=== PATIENT | male | born 1965 | race Caucasian/White ===

== ENCOUNTER 2020-01-31 14:15 | Emergency (ER) | payer BC ==
[~2020-01-31] VITALS: Ht 177.8 cm; Wt 112.0 kg
[2020-01-31 14:15] VITALS: BP 173/83
[2020-01-31] MEDS ORDERED: IBUP-1022 PO (14:54)
== END 2020-01-31 15:02 | disposition home or self-care (01) ==
LOC: M ED 14:15
DX: S46.012A Strain of muscle(s) and tendon(s) of the rotator cuff of left shoulder, initial encounter (principal); X50.0XXA Overexertion from strenuous movement or load, initial encounter; Y99.0 Civilian activity done for income or pay; Y92.9 Unspecified place or not applicable; Y93.9 Activity, unspecified

== ENCOUNTER → 2020-02-18 | Outpatient (CLI) | payer BC ==
[~2020-02-18] MED LIST: IBUP-1022 PO
== END ==
LOC: M LABSMTC 13:11
PROVIDERS: ATTEND Anesthesiology
DX: Z01.812 Encounter for preprocedural laboratory examination (principal); Z20.828 Contact with and (suspected) exposure to other viral communicable diseases
CPT/HCPCS: C9803; U0003

== ENCOUNTER 2020-02-23 06:05 | Day surgery (SDC) | payer OTHER ==
[~2020-02-23] VITALS: Ht 177.8 cm; Wt 112.0 kg
[2020-02-23] MEDS ORDERED: dexameTHASONE 10MG/1ML VIAL PRES.FREE (J1100 PER 1MG) ONE (06:06)
[2020-02-23] MEDS ORDERED: LIDOCAINE 1% MDV 20ML VIAL ONE (06:06)
[2020-02-23] MEDS ORDERED: ROPIvacaine 0.5% 30ML INJECTION (J2795 PER 1MG) ONE (06:06)
[2020-02-23] MEDS ORDERED: ceFAZolin SOD 2 GM in IV 1 EA IV ONE (07:00)
[2020-02-23] MEDS ORDERED: LR 1,000 ML IV ONE (07:00)
[2020-02-23] MEDS ORDERED: dexameTHASONE 4 MG/ML 1ML VIAL (J1100 PER 1MG) As Ordered ONE (07:03)
[2020-02-23] MEDS ORDERED: fentaNYL 100 MCG/2 ML INJECTION (J3010) As Ordered ONE ×2 (07:03→07:04)
[2020-02-23] MEDS ORDERED: KETOROLAC 60MG 2ML VIAL As Ordered ONE (07:03)
[2020-02-23] MEDS ORDERED: MIDAZOLAM INJ 2MG/2ML VIAL (J2250 PER 1MG) As Ordered ONE ×2 (07:03→07:04)
[2020-02-23] MEDS ORDERED: ONDANSETRON 4MG/2ML VIAL As Ordered ONE (07:03)
[2020-02-23] MEDS ORDERED: LIDOCAINE 2% 100MG/5ML SDV (FOR ANES.) As Ordered ONE (07:04)
[2020-02-23] MEDS ORDERED: propofoL 200 MG/20 ML VIAL As Ordered ONE (07:04)
[2020-02-23] MEDS ORDERED: ROCURONIUM BROMIDE 50 MG/5 ML VIAL As Ordered ONE (07:05)
[2020-02-23] MEDS ORDERED: EPINEPHrine 1MG/ML INJ 30ML MD-VIAL As Ordered ONE (07:14)
[2020-02-23] MEDS ORDERED: SUGAMMADEX SODIUM 500 MG/5 ML VIAL (BRIDION) As Ordered ONE (08:10)
[2020-02-23] MEDS ORDERED: ACETAMINOPHEN 1000MG 100ML IV BTL (OFIRMEV) (J0131 PER 10MG) As Ordered ONE (08:10)
[2020-02-23] MEDS ORDERED: MIDAZOLAM INJ 2MG/2ML VIAL (J2250 PER 1MG) IV PRN (09:00)
[2020-02-23] MEDS ORDERED: fentaNYL 100 MCG/2 ML INJECTION (J3010) IV PRN ×2 (09:00→11:15)
[2020-02-23] MEDS ORDERED: LABETALOL 100MG/20ML VIAL As Ordered ONE (10:16)
[2020-02-23] MEDS: LABETALOL 100MG/20ML VIAL IV SCH ×5 (10:19→11:15)
[2020-02-23 11:15] VITALS: BP 179/89
[2020-02-23] MEDS ORDERED: ONDANSETRON 4MG/2ML VIAL IV PRN ×2 (11:15→11:30)
[2020-02-23] MEDS ORDERED: LR 1,000 ML IV SCH (11:15)
[2020-02-23] MEDS ORDERED: oxyCODONE 5MG TAB PO PRN (11:15)
[2020-02-23] MEDS ORDERED: ACETAMINOPHEN TAB 650MG DOSE (2X325MG) PO PRN (11:30)
[2020-02-23] MEDS ORDERED: MORPHINE 2 MG/ML 1ML VIAL (J2270) IV PRN (11:30)
[2020-02-23] MEDS ORDERED: PERCOCET 5MG/325MG TAB PO PRN (11:30)
--- NOTE | 2020-02-23 14:13 | RO ---
DATE OF OPERATION: 02/23/2020 PREOPERATIVE DIAGNOSIS: Left shoulder rotator cuff tear. POSTOPERATIVE DIAGNOSIS: Left shoulder rotator cuff tear. PLANNED PROCEDURE: Left shoulder arthroscopic rotator cuff repair. PROCEDURE PERFORMED: Left shoulder arthroscopic rotator cuff repair, subacromial decompression. SURGEON: Eran Curry MD PATENT SOLICITOR: Dr. Castellano TYPE OF ANESTHETIC: General anesthetic plus block. TRANSFORMATION ARCHITECT: Breanna Vital OPERATIVE PREAMBLE: This 63-year-old man hurt his arm at work. He heard a pop. MRI was consistent with large full thickness supraspinatus tendon tear. He wished to go ahead with surgery. Preop talked about pros, cons, risks and benefits of going ahead and in preoperative holding marked the left upper extremity and proceeded to surgery. OPERATIVE REPORT: The patient was brought to the operating theater. He was administered 2 gm IV Ancef. He was placed in left lateral decubitus in beanbag positioner. All bony prominences were padded. Axillary roll was placed. SCDs were used on the legs. Bear hugger employed. The patient was given preoperative block. General anesthesia was induced. Limb was prepped and draped in the usual sterile fashion with Chlorhexidine-based prep solution allowing over 3 minutes of prep solution drying time prior to draping in which preoperative time out was performed confirming site, patient and surgery. I began by inserting the arthroscope at the interarticular portion of the shoulder through standard posterior working portal. I looked in the humeral head and glenoid appeared normal. I made a standard inside-out anterior portal through the rotator interval just posterior to the biceps tendon. Some gentle debridement was done to moderate anterior labral fraying. Anterior pouch was entered. There were no obvious loose bodies. Biceps tendon appeared normal as did the root. There was an obvious large full thickness supraspinatus tendon tear with retraction to the midhumeral head. Arthroscope was withdrawn, placed in subacromial space. Two lateral portals were created as was posterolateral viewing portal. 2.5 mm cannulas were placed. Bursa was thoroughly debrided away. Bone decompression was performed until all bursa was to flat undersurface. Tendon edges were gently debrided. The greater tuberosity was prepared using a bur to bleeding bone. This was a large crescent- shaped tear. It was mobile to the lateral aspect of the edge under slight amount of tension. [employer] SpeedBridge implants were opened and used for the case. Two medial row anchors were placed. Sutures were brought out through large bites from inferior to superior surface of supraspinatus tendon. Splice was cut and the sutures crisscrossed in typical SpeedBridge fashion and docked two sutures to the lateral row. This achieved good fixation of the rotator cuff down to the greater tuberosity. There was a small remaining dog ear posterolaterally and this was fixed with stay suture on the posterolateral anchor. Knot was SMC internally locking knots with three alternating passages. Final arthroscopic pictures were taken and saved onto the system. Anteriorly to posteriorly the tear measured approximately 3 cm and retraction was about 2.5 cm to midhumeral head. Final arthroscopic pictures were taken and saved onto the system. Wound was thoroughly irrigated and scope was withdrawn. Portal sites were cleaned with wet-to-dry dressing followed by closure with 3-0 Monocryl. Steri-Strips, Adaptic, 4 x 8 gauze, ABD dressing and cloth tape were applied and the patients upper extremity placed into a sling. The patient was awoken from general anesthetic, transferred off the operating table and taken to postanesthetic unit in stable condition. All sponge, instrument and needle counts were correct. Estimated blood loss 50 mL. Plan is for the patient to remain in a sling for the 4 weeks time, start pendulum exercises to the left arm. Then may begin hand, wrist and elbow exercises. Follow up in my office in 2 weeks time. Can be discharged home according to day surgery criteria. Prescription has been transmitted electronically to pharmacy of choice. Hospice Registered Nurse Breanna Vital was instrumental in holding retractors, achieving visualization and completing the case. INO
[2020-02-23 14:16] VITALS: BP 184/88
--- NOTE | 2020-02-26 07:51 | ECGEPIP ---
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
== END 2020-02-23 14:35 | disposition home or self-care (01) ==
LOC: M SDC 06:05
PROVIDERS: ATTEND Orthopaedic Surgery Sports Medicine
DX: S46.012A Strain of muscle(s) and tendon(s) of the rotator cuff of left shoulder, initial encounter (principal); X58.XXXA Exposure to other specified factors, initial encounter; Y92.512 Supermarket, store or market as the place of occurrence of the external cause; Y93.9 Activity, unspecified; Y99.0 Civilian activity done for income or pay
CPT/HCPCS: 29826; 29827; 64415; 93005; C1713; J0131; J0690; J1100; J1885; J2250; J2405; J2795; J3010